=== PATIENT | female | born 1980 | race African-American/Black ===

== ENCOUNTER 2020-09-09 09:16 | Emergency (ER) | payer MEDICAID ==
[~2020-09-09] VITALS: Ht 157.5 cm; Wt 80.0 kg
[~2020-09-09 09:16] MED LIST: ADVIL; TYLENOL
[2020-09-09] MEDS ORDERED: KETOROLAC 30MG/ML VIAL IV STA (09:46)
[2020-09-09 09:56] LABS: BASOPHILS % 0.7 % (0.0-2.0); HEMATOCRIT. 38.2 % (36.0-48.0); HEMOGLOBIN. 12.8 g/dL (12.0-16.0); LYMPHOCYTES % 50.4 % (20.0-50.0); MEAN CORPUSCULAR HEMOGLOBIN 30.1 pg (28.0-32.0); MONOCYTES % 8.2 % (2.0-8.0); NEUTROPHILS % 39.7 % (40.0-76.0); PLATELET 264 x1000/uL (130-400); RED BLOOD CELL COUNT 4.25 mill/uL (4.2-5.4); RED CELL DISTRIBUTION WIDTH 13.5 % (11.6-14.6)
[2020-09-09 10:00] LABS: CHLORIDE 107 mEq/L (98-107)
[2020-09-09] MEDS ORDERED: TOPUD MT (10:36)
[2020-09-09 10:49] VITALS: BP 130/73
== END 2020-09-09 10:51 | disposition home or self-care (01) ==
LOC: ER 09:48
DX: M79.18 Myalgia, other site (principal); F43.20 Adjustment disorder, unspecified; I10 Essential (primary) hypertension
CPT/HCPCS: 36415; 71045; 80053; 83880; 84484; 85025; 93005; 96374; 99285; J1885